=== PATIENT | male | born 1985 | race African-American/Black ===

== ENCOUNTER 2020-01-29 00:21 | Emergency (ER) | payer OTHER ==
[2020-01-29] MEDS ORDERED: ONDANSETRON HCL 4 MG/2 ML VIAL ONE (01:14)
[2020-01-29] MEDS ORDERED: MORPHINE SULFATE 4 MG/1ML SYG ONE (01:14)
[2020-01-29 01:30] LABS: BASOPHILS % (AUTO) 0.7 % (0.0-5.0); EOSINOPHILS % (AUTO) 2.6 % (0.0-8.0); HEMATOCRIT 43.4 % (42-54); LYMPHOCYTES % (AUTO) 51.4 % (21.0-51.0); MEAN CORPUSCULAR HEMOGLOBIN 22.6 pg (27.0-33.0); MEAN CORPUSCULAR VOLUME 70.5 fL (79-99); MONOCYTES % (AUTO) 9.2 % (3.0-13.0); NEUTROPHILS % (AUTO) 35.7 % (40.0-77.0); PLATELET COUNT (AUTO) 280 K/uL (130-400); RED BLOOD CELL COUNT(AUTO) 6.16 MIL/uL (4.50-6.20); RED CELL DISTRIBUTION WIDTH 15.9 % (11.0-15.5); WHITE BLOOD COUNT (AUTO) 5.4 K/uL (4.8-10.8)
[2020-01-29 01:41] LABS: CREATININE 1.1 mg/dL (0.5-1.5)
[2020-01-29 01:46] LABS: ALBUMIN 3.7 g/dL (3.5-5.0); BILIRUBIN,TOTAL 0.2 mg/dL (0.2-1.0); TOTAL PROTEIN, SERUM 7.9 g/dL (6.0-8.3)
[2020-01-29] MEDS ORDERED: CLONIDINE HCL 0.1 MG TABLET ONE (01:58)
== END 2020-01-29 02:35 | disposition home or self-care (01) ==
LOC: EDH 00:21
DX: I10 Essential (primary) hypertension (principal); R51.9 Headache, unspecified
CPT/HCPCS: 36415; 70450; 80053; 84484; 85025; 93005; 96374; 96375; 99285; J2270; J2405